=== PATIENT | male | born 1980 | race Caucasian/White ===

== ENCOUNTER 2020-03-24 20:19 | Emergency (ER) | payer SELFPAY ==
[~2020-03-24] VITALS: Ht 170.2 cm; Wt 104.3 kg
[2020-03-24 20:19] VITALS: BP 0/0
[2020-03-24] MEDS ORDERED: EPINEPHrine HCL 1 MG/10 ML SYRG IV ONE (20:20)
[2020-03-24] MEDS ORDERED: SODIUM BICARBONATE 8.4% INJ 50ML SYRINGE IV ONE (20:20)
== END 2020-03-25 10:58 ==
LOC: ER 20:19 → EDBD 20:19 → ER 03-25 10:58
DX: I46.9 Cardiac arrest, cause unspecified (principal)
CPT/HCPCS: 31500; 92950; 99291; J0171